=== PATIENT | male | born 1955 | race Caucasian/White ===

== ENCOUNTER → 2017-08-13 | Outpatient (CLI) | payer BC ==
--- NOTE | 2017-08-13 13:10 | CT ---
EXAMINATION TYPE: CT chest wo con DATE OF EXAM: 08/13/2017 COMPARISON: CT abdomen pelvis dated 07/29/2017. HISTORY: Solitary Lung Nodule CT DLP: 445.6 mGycm. Automated Exposure Control for Dose Reduction was Utilized. TECHNIQUE: CT scan of the thorax is performed without IV contrast. FINDINGS: LUNGS: The previously seen solitary 7 mm pulmonary nodule on the prior CT abdomen and pelvis within t he right lung base is the only identifiable pulmonary nodule within both lungs. This is solid and wel l-circumscribed on series 4 image 43. This is also noncalcified. Subsegmental lingular atelectasis an d left basilar pleural parenchymal scarring are noted. No evidence for emphysematous change. The lung s demonstrate no evidence of focal consolidation. There is no pleural effusion or pneumothorax seen . The tracheobronchial tree is patent. MEDIASTINUM: Lack of IV contrast is noted to limit evaluation for mediastinal and especially hilar ad enopathy. There are no definitive greater than 1 cm hilar or mediastinal lymph nodes. Ascending thora cic aorta measures up to 3.7 cm. No cardiomegaly or pericardial effusion is seen. Minimal asymmetric retroareolar gynecomastia is present, right greater than left. OTHER: Mild multilevel degenerative change of the thoracic spine is noted. No gross abnormality seen in the unenhanced limited images of the upper abdomen. IMPRESSION: Single solitary noncalcified right lower lobe 7 mm pulmonary nodule. This is likely too s mall for biopsy and below the threshold of PET CT and therefore follow-up CT is recommended in 6-12 m [facility] per consensus guidelines of the Fleischner Society.
== END | disposition home or self-care (01) ==
LOC: RADCTMAIN 12:13
PROVIDERS: ATTEND Family Medicine
DX: R91.1 Solitary pulmonary nodule (principal)
CPT/HCPCS: 71250

== ENCOUNTER → 2018-02-11 | Outpatient (CLI) | payer BC ==
--- NOTE | 2018-02-11 13:42 | CT ---
EXAMINATION TYPE: CT chest wo con DATE OF EXAM: 02/11/2018 COMPARISON: 08/13/2017 HISTORY: Solitary pulmonary nodule CT DLP: 724 mGycm. Automated Exposure Control for Dose Reduction was Utilized. TECHNIQUE: CT scan of the thorax is performed without IV contrast. FINDINGS: LUNGS: The previously seen solitary 7 mm pulmonary nodule on the prior CT abdomen and pelvis within t he right lung base is the only identifiable pulmonary nodule within both lungs. This is solid and wel l-circumscribed. This is also noncalcified. Subsegmental lingular atelectasis and left basilar pleural parenchymal scarring are noted. No evidenc e for emphysematous change. The lungs demonstrate no evidence of focal consolidation. There is no ple ural effusion or pneumothorax seen. The tracheobronchial tree is patent MEDIASTINUM: Lack of IV contrast is noted to limit evaluation for mediastinal and especially hilar ad enopathy. There are no definitive greater than 1 cm hilar or mediastinal lymph nodes. Ascending tho racic aorta measures up to 3.7 cm. No cardiomegaly or pericardial effusion is seen. Minimal asymmetri c retroareolar gynecomastia is present, right greater than left. OTHER: Mild multilevel degenerative change of the thoracic spine is noted. No gross abnormality seen in the unenhanced limited images of the upper abdomen. Stable hypodense lesion is indeterminate by n oncontrast technique right kidney compared to CT of the abdomen dated 07/29/2017. It measures 5 Houns field units on the previous exam and therefore compatible simple cyst. IMPRESSION: 1. Stable solitary pulmonary nodule right lower lobe unchanged from the prior exam. Additional 6 rob h follow-up is recommended per consensus guidelines of the Fleischner Society.
== END | disposition home or self-care (01) ==
LOC: RADCTMAIN 12:40
PROVIDERS: ATTEND Family Medicine
DX: R91.1 Solitary pulmonary nodule (principal)
CPT/HCPCS: 71250

== ENCOUNTER → 2018-05-12 | Outpatient (CLI) | payer BC ==
--- NOTE | 2018-05-12 08:12 | CT ---
EXAMINATION TYPE: CT chest wo con DATE OF EXAM: 05/12/2018 COMPARISON: 02/11/2018 and 08/13/2017 HISTORY: Shortness of breath CT DLP: 959.8 mGycm. Automated Exposure Control for Dose Reduction was Utilized. TECHNIQUE: CT scan of the thorax is performed without IV contrast. FINDINGS: LUNGS: Again there is stability of a 7 mm solid right basilar pulmonary nodule seen on series 9 image 22 unchanged from the prior exams of 08/13/2017 and 02/11/2018. Linear left basilar pleural-parenchym al scarring is seen in addition to subsegmental dependent atelectasis shifting on supine and prone im aging. There is minimal left pleural thickening measuring 4 mm on series 9 image 22. There is no melida ycombing, interlobular septal thickening, or bronchiectasis. No focal opacity is seen. No significant emphysematous change. There is no pleural effusion or pneumothorax seen. The tracheobronchial tree is patent. MEDIASTINUM: Lack of IV contrast is noted to limit evaluation for mediastinal and especially hilar ad enopathy. There are no definitive greater than 1 cm hilar or mediastinal lymph nodes. No cardiomega ly or pericardial effusion is seen. OTHER: No mild multilevel degenerative changes of the thoracic spine are noted the previously seen r ight renal cyst is poorly visualized on this noncontrast enhanced CT. Left-sided nonobstructing 3 mm calculus is noted. Minimal retroareolar gynecomastia is again seen. IMPRESSION: 1. Stable 7 mm noncalcified solid right lower lobe pulmonary nodule dating back to 08/13/2017. Follow -up is again recommended in 12 months to ensure long-term stability. 2. No evidence of interstitial lung disease or focal consolidation. Stable exam from the priors.
== END ==
LOC: RADCTMAIN 07:17
PROVIDERS: ATTEND Internal Medicine Critical Care Medicine
DX: J98.4 Other disorders of lung (principal)
CPT/HCPCS: 71250

== ENCOUNTER 2018-08-11 10:51 | Emergency (ER) | payer BC ==
[2018-08-11] MEDS ORDERED: KETOROLAC 60 MG/2 ML VIAL IVP STA (11:23)
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
[2018-08-11 12:08] LABS: Basophils % (A) 0 %; Eosinophils # (A) 0.1 k/uL (0-0.7); Eosinophils % (A) 1 %; HCT 40.7 % (39.0-53.0); HGB 13.8 gm/dL (13.0-17.5); Lymphocytes # (A) 1.4 k/uL (1.0-4.8); Lymphocytes % (A) 15 %; MCH 30.3 pg (25.0-35.0); MCHC 33.9 g/dL (31.0-37.0); MCV 89.6 fL (80.0-100.0); Mean Platelet Volume 6.5; Monocytes # (A) 0.6 k/uL (0-1.0); Monocytes % (A) 7 %; Neutrophils # (A) 6.7 k/uL (1.3-7.7); Neutrophils % (A) 75 %; Platelet Count 217 k/uL (150-450); RBC 4.55 m/uL (4.30-5.90); RDW 13.6 % (11.5-15.5)
--- NOTE | 2018-08-11 12:10 | XR ---
EXAMINATION TYPE: XR mandible complete DATE OF EXAM: 08/11/2018 COMPARISON: None HISTORY: Pain right mandible x2 months TECHNIQUE: Five-view right mandible FINDINGS: No acute fractures are evident. Temporomandibular junctions as visualized are normal. IMPRESSION: 1. Normal mandible
[2018-08-11 12:18] LABS: ALT 34 U/L (21-72); AST 34 U/L (17-59); Alkaline Phosphatase 102 U/L (38-126); Anion Gap 7 mmol/L; Blood Urea Nitrogen 15 mg/dL (9-20); Calcium 9.2 mg/dL (8.4-10.2); Carbon Dioxide 25 mmol/L (22-30); Chloride 108 mmol/L (98-107); Glucose 91 mg/dL (74-99); Magnesium 2.1 mg/dL (1.6-2.3); Potassium 4.4 mmol/L (3.5-5.1); Sodium 140 mmol/L (137-145); Total Bilirubin 0.9 mg/dL (0.2-1.3); Total Protein 7.1 g/dL (6.3-8.2)
[2018-08-11 12:20] LABS: Partial Thromboplastin Time 25.3 sec (22.0-30.0); Prothrombin Time 10.1 sec (9.0-12.0)
[2018-08-11 12:32] LABS: Creatine Kinase 298 U/L (55-170)
[2018-08-11 12:44] LABS: Troponin I <0.012 ng/mL (0.000-0.034)
[2018-08-11 12:50] LABS: Creatine Kinase MB 5.1 ng/mL (0.0-2.4)
[2018-08-11] MEDS ORDERED: MORPHINE SULFATE 2 MG/ML SYRINGE IVP STA (12:55)
[2018-08-11 13:20] VITALS: BP 138/93; PULSE 69; RESP 18; TEMP 97.8
== END 2018-08-11 13:45 | disposition home or self-care (01) ==
LOC: EC 10:51
DX: M26.601 Right temporomandibular joint disorder, unspecified (principal); Z98.890 Other specified postprocedural states; Z79.899 Other long term (current) drug therapy
CPT/HCPCS: 36415; 70110; 80053; 82550; 82553; 83735; 84484; 85025; 85610; 85730; 93005; 96374; 96375; 99284

== ENCOUNTER → 2019-04-18 | Outpatient (CLI) | payer BC ==
[2019-04-18 12:27] VITALS: BP 146/70; RESP 16
[2019-04-18 12:58] VITALS: PULSE 73
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
== END | disposition home or self-care (01) ==
LOC: PNWHC3 12:10
PROVIDERS: ATTEND Anesthesiology
DX: M50.10 Cervical disc disorder with radiculopathy, unspecified cervical region (principal); M47.22 Other spondylosis with radiculopathy, cervical region; I10 Essential (primary) hypertension; E78.5 Hyperlipidemia, unspecified
CPT/HCPCS: 99211

== ENCOUNTER 2019-04-27 08:07 | Day surgery (SDC) | payer BC ==
[2019-04-24 14:40] VITALS: BMI 33.7
[~2019-04-27 08:07] MED LIST: LACTATED RINGERS 1,000 ML IV SCH
[2019-04-27 08:33] VITALS: RESP 16; TEMP 97.2
--- NOTE | 2019-04-27 09:19 | P.PCN ---
Date of Procedure: 04/27/19 Procedure(s) Performed: Diagnosis: Cervical radiculopathy Cervical degenerative disc disease POSTOPERATIVE DIAGNOSIS: Diagnoses: Cervical radiculopathy Cervical degenerative disc disease PROCEDURE Cervical Epidural steroid injection under fluoroscopic guidance at the C7-T1 interspace using left paramedian approach Cervical epidurogram ANESTHESIA: Local with 1% lidocaine 3 ml and IV sedation with Versed and fentanyl Fluoroscopy was used for the procedure and images were saved in the radiology portion of the chart. EBL: Minimal PROCEDURE INDICATION: The patient presents with cervical radicular symptoms unresponsive to conservative treatment. This is the first cervical epidural steroid injection. PROCEDURE DESCRIPTION / TECHNIQUE: The patient was seen and identified in the preoperative area. Risks, benefits, complications including but not limited to infections ,bleeding ,allergic reaction to the medications ,nerve damage and incomplete pain relief, and alternatives were discussed with the patient. The patient agreed to proceed with the procedure and signed the consent. IV was started, and vital signs were stable. Patient was taken to the OR and time out was completed. The patient was placed in the prone position on procedure table and a pillow was placed under the chest area. The cervical area was prepped and draped in the usual sterile fashion. Conscious sedation was used during the procedure to decrease patients anxiety. Vital signs was monitored during the entire procedure. Using anterior-posterior fluoroscopy, the C7-T1 interlaminar space was identified and the skin over this site was marked and then infiltrated with 1% lidocaine subcutaneously. Subsequently, a 20-gauge Tuohy epidural needle was inserted and advanced toward the epidural space using the loss of resistance technique and guided by AP and 50 oblique fluoroscopy. The correct needle position in the epidural space was verified. After negative aspiration for blood and CSF and in the absence of paresthesias, Isovue 200 2 mL's was injected under live fluoroscopy with good epidural spread. After negative aspiration, a 5 ml mixture containing 10 mg of dexamethasone, 3 mL of preservative free normal saline and 1 mL of 1% lidocaine was injected. Needle was withdrawn intact, skin was cleansed, and bandages were applied. COMPLICATIONS: None DISPOSITION / PLANS: The patient was placed in a supine position and transferred to the recovery area in a stable condition for observation. There was no evidence of lower extremity motor or sensory deficit after the procedure. Patient was discharged from the recovery room after meeting discharge criteria. Home discharge instructions were given to the patient by the staff. The patient will be scheduled a repeat procedure in 2-4 weeks.
[2019-04-27] MEDS ORDERED: IV FLUID CONTINUATION 1,000 ML IV ONE (09:24)
--- NOTE | 2019-04-27 09:38 | FL ---
EXAMINATION TYPE: FL guided pain mgmt statistic DATE OF EXAM: 04/27/2019 CLINICAL HISTORY: Neck and back pain. TECHNIQUE: Fluoroscopy. COMPARISON: None. FINDINGS: Fluoroscopic guidance was provided during pain relief procedure performed by Dr. Diehl . A total of 5 seconds of fluoroscopic time was utilized during the procedure and single spot image is ac quired. Single image acquired shows needle localization with contrast injection at the cervical thor acic junction epidural space. IMPRESSION: As Above.
[2019-04-27 09:44] VITALS: BP 132/89; PULSE 67
== END 2019-04-27 10:01 | disposition home or self-care (01) ==
LOC: ORPAIN 08:07
PROVIDERS: ATTEND Anesthesiology
DX: M50.10 Cervical disc disorder with radiculopathy, unspecified cervical region (principal); M47.22 Other spondylosis with radiculopathy, cervical region; M79.18 Myalgia, other site; I10 Essential (primary) hypertension; E78.5 Hyperlipidemia, unspecified; Z79.899 Other long term (current) drug therapy
CPT/HCPCS: 62321; J2250; J1100; J3010; Q9966

== ENCOUNTER 2019-05-11 08:16 | Day surgery (SDC) | payer BC ==
[2019-05-05 17:16] VITALS: BMI 33.7
[2019-05-11 08:38] VITALS: TEMP 98.4
[2019-05-11] MEDS ORDERED: LIDOCAINE 1% 20 ML VIAL (10MG/ML) FOR IV START INTRADERMA ONE (08:50)
--- NOTE | 2019-05-11 09:20 | P.PCN ---
Date of Procedure: 05/11/19 Procedure(s) Performed: PROCEDURE 1. Cervical epidural steroid injection under fluoroscopic guidance, C7-T1 (fluoroscopy images available in the radiology department ) 2. Cervical epidurogram. PREOPERATIVE DIAGNOSIS: 1- Cervical Degenerative Disc Diseases 2- Cervical radiculopathy. POSTOPERATIVE DIAGNOSIS: : 1- Cervical Degenerative Disc Diseases , 2- Cervical radiculopathy. ANESTHESIA: Local anesthesia with lidocaine 1 % , and moderate sedation, with Versed 1 mg and Fentanyl 50 mcg. EBL 0 PROCEDURE INDICATION: The patient with neck pain and radiculitis unresponsive to conservative treatment consents for procedure. PROCEDURE DESCRIPTION / TECHNIQUE: The patient was seen and identified in the preoperative area. Risks, benefits, complications, including but not limited to infections ,bleeding , allergic reactions to the medications ,and not complete pain releife, and alternatives were discussed with the patient, the patient agreed to proceed with the procedure and signed the consent. Patient was taken to the OR and time out was completed. The patient was placed in the prone position on the procedure table. A pillow was placed under the patients chest to increase the cervical interlaminar space. The cervical area was prepped and draped in the usual sterile fashion. Vital signs were closely monitored during the procedure. Conscious sedation was used during the procedure to decrease patients anxiety. Using anterior-posterior fluoroscopy, the C7-T1 interlaminar space was identified and the skin over this site was marked and then infiltrated with 1% lidocaine subcutaneously. Subsequently, a 20-gauge 3-1/2-inch Tuohy epidural needle was inserted and advanced toward the epidural space by means of the ``hanging-drop technique and guided by AP and lateral fluoroscopy. The correct needle position in the epidural space was verified with the injection of 2 mL of the water soluble contrast dye Isovue-200 and observing an excellent epidurogram with the epidural spread of the dye, after negative aspiration for blood and CSF and in the absence of paresthesias. Again after negative aspiration, mixture containing 20 mg Dexamethasone and 2 ml of preservative- free normal saline injected and a washout of epidurogram was seen. Needle was withdrawn intact, skin was cleansed, and bandages were applied. Complications= none. Disposition= patient was placed in supine position and transferred to the recovery room area in stable condition and there was no evidence of upper or lower extremity motor or sensory deficit after the procedure patient was discharged from recovery room after discharge criteria met and home discharge instructions was given by the staff and patient will follow with the pain clinic in 2-4 weeks
[2019-05-11 09:28] VITALS: RESP 18
[2019-05-11] MEDS ORDERED: IV FLUID CONTINUATION 1,000 ML IV ONE (09:52)
[2019-05-11 09:56] VITALS: BP 132/68; PULSE 67
--- NOTE | 2019-05-11 10:20 | FL ---
EXAMINATION TYPE: FL guided pain mgmt statistic DATE OF EXAM: 05/11/2019 HISTORY: Flouroscopy time 4 seconds of fluoroscopy provided. IMPRESSION: 1. Fluoroscopy time.
== END 2019-05-11 09:58 | disposition home or self-care (01) ==
LOC: ORPAIN 08:16
PROVIDERS: ATTEND Specialist
DX: M50.30 Other cervical disc degeneration, unspecified cervical region (principal)
CPT/HCPCS: 62321; J2250; J1100; J3010; Q9966

== ENCOUNTER → 2020-05-30 | Outpatient (CLI) | payer BC ==
--- NOTE | 2020-05-30 09:11 | CT ---
EXAMINATION TYPE: CT chest w con DATE OF EXAM: 05/30/2020 COMPARISON: CT chest 08/23/2018 and older CTs. HISTORY: difficulty breathing per patient. Lung nodule per order. CT DLP: 520.8 mGycm. Automated Exposure Control for Dose Reduction was Utilized. TECHNIQUE: CT scan of the thorax is performed following with IV Contrast, patient injected with 100 mL of Isovue 300. FINDINGS: LUNGS: Stable 7 mm peripheral right lower lobe nodule axial image 43. Persistent mild/moderate linear scarring in the left lung base. No new greater than 4 mm pulmonary nodules bilaterally. Persistent s lightly elevated left hemidiaphragm. No pleural effusion or pneumothorax seen bilaterally. MEDIASTINUM: There are no new greater than 1 cm hilar or mediastinal lymph nodes. No cardiomegaly o r pericardial effusion is seen. OTHER: Visualized liver is hypodense consistent with fatty infiltration. Nonobstructing 4 mm calculus mid pole level left kidney axial image 77. Simple appearing 2.1 cm cyst medially right kidney upper midpole level axial image 76. Retroaortic left renal vein. Poorly distended stomach. Moderate disc sp ilya narrowing and spurring L1-L2 level. Multilevel spinous process hypertrophy. Multilevel mild to mo derate spurring. Posterior subcutaneous right paraspinal metallic foreign body near axial image 35 re demonstrated. Stable asymmetric minimal bilateral subareolar gynecomastia. IMPRESSION: Stable 7 mm right basilar pulmonary nodule since August 2017 consistent with benign raúl ology. No new suspicious nodules or masses.
== END | disposition home or self-care (01) ==
LOC: RADCTMAIN 07:40
PROVIDERS: ATTEND Internal Medicine Critical Care Medicine
DX: R91.1 Solitary pulmonary nodule (principal)
CPT/HCPCS: 71260; Q9967

== ENCOUNTER → 2024-06-08 | Outpatient (CLI) | payer MEDICARE ==
--- NOTE | 2024-06-08 12:39 | CA ---
Exercise Nuclear Stress Test Report Name: Delmar Isaacs Exam Date: 06/08/2024 11:37 Exam Location: [facility] Stress Ht (in): 70 Wt (lb): 245 BSA: 2.28 Ordering Phys: Portia Singh MD Referring Phys: Portia Singh MD Technologist: Manoj Torres Age: 68 Gender: M : 1955 Procedure CPT: Indications: I25.10 CAD ICD-10 Codes: Patient History: Shortness of breath,and hypertension Medications: Meds past 24 hrs: Pretest Chest Pain: STRESS TEST [place] Protocol Exercise Duration (min:sec): 07:[address] Depressions (mm): Angina Score: [place] Score: Resting HR (bpm): 63 Peak HR (bpm): 137 Resting BP (mmHg): 136 / 79 Peak BP (mmHg): 249 / 87 MPHR: 154 Target HR: 131 % MPHR: 89 METS: 9.2 Total Dose: Peak Dose: Atropine: Double Product: 82343 BP Response: Stress Termination: Reached target heart rate Stress Symptoms: No chest pain or symptoms Stress Summary: ECG ANALYSIS Resting ECG: Stress ECG: CONCLUSIONS Baseline EKG revealed normal sinus rhythm with poor R wave progression. No significant ST-T changes. Patient walked on a standard [place] protocol for 7 minutes 10 seconds and achieved a maximal heart rate of 138 bpm. He did not have any angina. There was no significant arrhythmia. Rare PVCs were noted. There were no ST segment changes to indicate ischemia. This is a negative stress test by EKG criteria with fair exercise capacity. There is no evidence suggest ischemia Dr. Emerson Patel MD (Electronically Signed) Final Date: 08 June 2024 12:38
--- NOTE | 2024-06-13 15:24 | NM ---
EXAMINATION TYPE: NM stress cardiolite complete DATE OF EXAM: 06/08/2024 COMPARISON: NONE CLINICAL INDICATION: Male, 68 years old with history of I25.10 CAD; TECHNIQUE: After the intravenous administration of 10.1 mCi Tc 99m Sestamibi - Rest images obtained 60 minutes post injection. The patient exercised using a MIMI protocol and 1 minute prior to peak exercise was injected with 25.4 mCi Tc 99m Sestamibi - Stress images obtained 25 minutes post injecti on. FINDINGS: Targeted heart rate (131 BPM) was achieved during performance of the study, 137 bpm achieved). Total exercise time 7 minutes 10 seconds. Review of stress and rest SPECT images demonstrates perfusion defect throughout the inferolateral wal l which is much more pronounced on rest images. Small fixed defect along the apical anteroseptal wall . Findings suggest areas of either old infarct or attenuation artifact. No discrete reversibility is seen. Gated analysis shows normal wall motion with an estimated left ventricular ejection fraction of 61 %. TID is calculated at 0.86, within normal limits. IMPRESSION: Areas of fixed perfusion abnormality along most of the inferolateral wall are more pronounced on rest suggesting prominent attenuation artifact. Also, a small fixed defect apical anteroseptal wall could represent additional attenuation artifact versus a small area of old infarct. Clinically correlate. No scintigraphic evidence for reversible ischemia
== END | disposition home or self-care (01) ==
LOC: RADNMMAIN 09:46
PROVIDERS: ATTEND Internal Medicine
DX: I25.10 Atherosclerotic heart disease of native coronary artery without angina pectoris
CPT/HCPCS: 78452; 93017

== ENCOUNTER → 2024-07-12 | Outpatient (CLI) | payer MEDICARE ==
--- NOTE | 2024-07-12 22:42 | MR ---
EXAMINATION TYPE: MR knee LT wo con DATE OF EXAM: 07/12/2024 COMPARISON: Outside left knee x-ray July 04, 2024 HISTORY: left knee pain and locking. TECHNIQUE: Multiplanar, multisequence images of the knee is performed without IV contrast. FINDINGS: MEDIAL MENISCUS: Globular increased signal posterior horn does not definitively extend to articular s urface. LATERAL MENISCUS: Subtle horizontal increased signal posterior horn does not definitively extend to a rticular surface. CRUCIATE LIGAMENTS: The anterior and posterior cruciate ligaments are intact and unremarkable. COLLATERAL LIGAMENTS: The medial collateral ligament and lateral collateral ligament complex are inta ct. Heterogeneous thickening of the lateral collateral ligament proper is noted. EXTENSOR MECHANISM: Visualized quadriceps and patellar tendons are intact. EFFUSION: No significant suprapatellar joint effusion. POPLITEAL CYST: No popliteal/collins cyst. TRICOMPARTMENT SPACES: Mild to moderate tricompartment joint space loss. No significant spurring. CARTILAGE: Tricompartment articular cartilage is preserved. BONE MARROW SIGNAL: No focal abnormal marrow signal is appreciated. OTHER: No additional significant abnormality is appreciated. IMPRESSION: 1. Mild to moderate tricompartment degenerative changes are present as detailed above. 2. Intrasubstance tear posterior horn medial meniscus. 3. Probable intrasubstance tear posterior horn lateral meniscus. Chronic injury lateral collateral li gament. No definitive full-thickness meniscal or ligamentous tear. [facility] [place], , 07/12/2024 10:40 PM
== END | disposition home or self-care (01) ==
LOC: RADMRIMAIN 14:50
PROVIDERS: ATTEND Orthopaedic Surgery
DX: M25.562 Pain in left knee

== ENCOUNTER → 2024-07-25 | Outpatient (CLI) | payer MEDICARE ==
[2024-07-25 15:57] LABS: Basophils # (A) 0.04 X 10*3/uL (0.00-0.10); Basophils % (A) 0.8 %; Eosinophils # (A) 0.24 X 10*3/uL (0.04-0.35); Eosinophils % (A) 4.6 %; HGB 13.8 g/dL (13.0-17.0); Lymphocytes # (A) 1.73 X 10*3/uL (0.90-5.00); MCH 33.2 pg (27.0-32.0); MCHC 34.5 g/dL (32.0-37.0); MCV 96.2 FL (80.0-97.0); Mean Platelet Volume 9.1 FL (9.5-12.2); Monocytes # (A) 0.75 X 10*3/uL (0.20-1.00); Monocytes % (A) 14.3 %; NRBC Per 100 WBC 0 X 10*3/uL (0.00-0.01); Neutrophils # (A) 2.47 X 10*3/uL (1.80-7.70); Neutrophils % (A) 47.1 %; Platelet Count 203 X 10*3/uL (140-440); RBC 4.16 X 10*6/uL (4.40-5.60); RDW 13.2 % (11.5-14.5); WBC 5.24 X 10*3/uL (4.50-10.00)
[2024-07-25 17:33] LABS: Anion Gap 10.8 mmol/L (4.00-12.00); Carbon Dioxide 23.2 mmol/L (21.6-31.8); Potassium 4.8 mmol/L (3.5-5.5)
== END | disposition home or self-care (01) ==
LOC: LABPAT 09:06
PROVIDERS: ATTEND Orthopaedic Surgery
DX: Z01.818 Encounter for other preprocedural examination (principal)
CPT/HCPCS: 36415; 80051; 85025; 93005

== ENCOUNTER 2024-08-23 07:08 | Day surgery (SDC) | payer MEDICARE ==
[2024-08-17 11:57] VITALS: BMI 35.2
--- NOTE | 2024-08-22 21:39 | HP ---
HISTORY AND PHYSICAL DATE OF SURGERY: 08/23/2024. HISTORY OF PRESENT ILLNESS: Mr. Delmar Isaacs is a 68-year-old gentleman seen with progressive left knee pain. We discussed options regarding treatment. He elected to proceed with left knee arthroscopy. Consent was obtained. PAST MEDICAL HISTORY: Hypertension, hyperlipidemia. PAST SURGICAL HISTORY: Noncontributory. DAILY MEDICATIONS: 1. Losartan. 2. Finasteride. 3. Atorvastatin. ALLERGIES: None. SOCIAL HISTORY: Denies tobacco use. PHYSICAL EVALUATION OF THE LEFT KNEE: Range of motion is 0 to 120 degrees. Mild effusion. Tenderness, medial joint line. Positive medial Vaibhav's. Ligaments stable. Hip rotation without pain. Distal neurovascular exam intact. IMAGING STUDIES: Left knee radiographs revealed mild osteoarthritis. MRI of left knee revealed medial meniscal tear. IMPRESSION: 1. Internal derangement of left knee with medial meniscal tear. 2. Hypertension. 3. Hyperlipidemia. PLAN: Left knee arthroscopy with partial medial meniscectomy and debridement. MMODL / IJN: [id number] /
[2024-08-23] MEDS: IV FLUID CONTINUATION 1,000 ML IV ONE (07:37)
[2024-08-23] MEDS ORDERED: droPERidol 5 MG/2 ML VIAL IVP ONE (07:38)
[2024-08-23] MEDS ORDERED: LIDOCAINE 1% (10MG/ML) FOR IV START INTRADERMA PRN (07:38)
[2024-08-23] MEDS: ONDANSETRON 4 MG/2 ML VIAL IVP ONE (08:08)
[2024-08-23] MEDS: DEXAMETHASONE SOD PHOSPHATE 4 MG/ML 1 ML VIAL IV ONE (08:08)
[2024-08-23] MEDS: LACTATED RINGERS 1,000 ML IV SCH (08:08)
[2024-08-23] MEDS ORDERED: MIDAZOLAM 2 MG/2 ML VIAL ONE (08:20)
[2024-08-23] MEDS ORDERED: LIDOCAINE 1% INJ 10MG/ML (20 ML MDV) ONE (08:20)
[2024-08-23] MEDS ORDERED: GLYCOPYRROLATE 0.2 MG/ML 2 ML VIAL ONE (08:20)
[2024-08-23] MEDS ORDERED: fentaNYL (PF) 50 MCG/ML 2 ML AMP ONE (08:20)
[2024-08-23] MEDS ORDERED: PROPOFOL 10 MG/ML 20 ML VIAL IV ONE (08:20)
[2024-08-23] MEDS ORDERED: PHENYLEPHRINE 10 MG/ML VIAL ONE (08:20)
[2024-08-23] MEDS ORDERED: HYDROmorphone (PF) 1 MG/ML ONE (08:20)
[2024-08-23] MEDS ORDERED: KETOROLAC 15 MG/ML 1 ML VIAL ONE (08:20)
[2024-08-23] MEDS: BUPIVACAINE (PF) 0.25% 30 ML VIAL MISCELLANE ONE ×2 (08:29→08:58)
[2024-08-23 09:20] VITALS: TEMP 97
--- NOTE | 2024-08-23 09:25 | P.OP ---
Date of Procedure: 08/23/24 Preoperative Diagnosis: Internal derangement left knee Postoperative Diagnosis: 1. Tear medial and lateral meniscus left knee 2. Reactive synovitis medial, lateral and suprapatellar compartments left knee Procedure(s) Performed: 1. Arthroscopic partial medial and lateral meniscectomy left knee 2. Arthroscopic partial synovectomy medial, lateral and suprapatellar compartments left knee Anesthesia: GETA, local Surgeon: Ajit Anthony Estimated Blood Loss (ml): 5 Pathology: none sent Condition: stable Disposition: PACU Indications for Procedure: 68-year-old patient seen with progressive left knee pain. After having treatment options discussed, he elected to proceed with arthroscopy. Operative Findings: See description of procedure Description of Procedure: Patient was taken to the operative suite. Patient underwent a general anesthetic by the department of anesthesia. Patient was given preoperative antibiotics. The left lower extremity was placed in a well-padded arthroscopic leg crews. The left leg was prepped and draped in the normal sterile orthopedic fashion. A lateral parapatellar and suprapatellar incision was made. Trochars were inserted. Arthroscopy was initiated. Suprapatellar pouch rev ealed diffuse thick reactive synovitis. The patellofemoral joint appeared to articulate congruently. There was mild grade I chondromalacia. The scope was guided into the medial gutter. No loose bodies or plica were identified. The scope was then guided into the medial compartment. A medial parapatellar incision was made. Trocar inserted followed by probe. There was a radial tear posterior horn medial meniscus. There were grade I chondromalacia changes medial femoral condyle. There was some thick reactive synovitis anteriorly. I performed a partial medial meniscectomy getting down to stable meniscal tissue. I performed a partial synovectomy decompressing the reactive synovitis. The residual meniscus was probed and was found to be stable. There was good decompression of the synovitis. Scope and probe were then guided into the intercondylar notch. Cruciates were identified, probed and found to be stable. The scope and probe were then guided into lateral compartment. There was a complex tear involving the mid body and posterior horns of the lateral meniscus. There were grade I chondromalacia changes lateral compartment without tears. There was some thick reactive synovitis anteriorly. I performed a partial lateral meniscectomy getting down to stable meniscal tissue. I performed a partial synovectomy. The residual meniscus was stable. There was good decompre ssion of the synovitis. The scope was in guided back into the suprapatellar compartment. I had used a motorized shaver into the suprapatellar compartment. I performed a partial synovectomy. The shaver was removed. There was good decompression of the synovitis. I took 1 more look around the entire knee, no residual debris. Instruments were now removed from the joint. The joint was infiltrated with .25% Marcaine. Steri-Strips were applied to the portal sites. Sterile dressings were applied. The patient was placed into a CARLEEN hose. No tourniquet was utilized. The patient was awakened, transferred to a bed and taken to recovery stable satisfactory condition.
[2024-08-23] MEDS: HYDROmorphone 0.5 MG/0.5 ML SYRINGE IVP PRN (09:26)
[2024-08-23 09:58] VITALS: RESP 16
[2024-08-23 10:20] VITALS: BP 134/75; PULSE 68
== END 2024-08-23 10:58 | disposition home or self-care (01) ==
LOC: OR 07:08
PROVIDERS: ATTEND Orthopaedic Surgery
DX: M23.301 Other meniscus derangements, unspecified lateral meniscus, left knee (principal); M23.304 Other meniscus derangements, unspecified medial meniscus, left knee; M65.862 Other synovitis and tenosynovitis, left lower leg; M17.12 Unilateral primary osteoarthritis, left knee; I10 Essential (primary) hypertension; E78.5 Hyperlipidemia, unspecified; N40.0 Benign prostatic hyperplasia without lower urinary tract symptoms; J44.9 Chronic obstructive pulmonary disease, unspecified; M47.812 Spondylosis without myelopathy or radiculopathy, cervical region; Z79.899 Other long term (current) drug therapy
CPT/HCPCS: 29880; 29876; J2250; J1100; J0690; J2405; J2003; J3010; J1171 ×2; J1885; J2704; J2371; J0665; J1596